=== PATIENT | male | born 1965 | race Caucasian/White ===

== ENCOUNTER 2016-10-31 01:00 | Day surgery (SDC) | payer MEDICAID ==
[~2016-10-31] VITALS: Ht 182.9 cm; Wt 99.0 kg
--- NOTE | ~2016-10-31 | ER ---
PATIENT'S NAME: ERIN FUENTES [facility] AGE: 51 Y [address] ROOM: [place] [address] [place] [facility] [place]: 10/31/2016 ER/Outpatient Report DISCHARGE DATE: FAMILY PHYSICIAN: Carlos Bell MD ATTENDING PHYSICIAN: YARON BARRIENTOS TIME SEEN: The patient was seen at 0120 hours. CHIEF COMPLAINT: This is a 51-year-old male. He was previously healthy. He is in with a complaint of a food bolus lodged in his lower esophagus. HISTORY OF PRESENT ILLNESS: He reports that he was eating steak last night around 5, and a bolus of food got lodged in his esophagus. He states that since then, he has been intermittently having to throw up his saliva secretions, and he has had continued pain. He has been unable to eat or drink anything. He states he has had similar problems in the past, although they have always resolved spontaneously. He has never been evaluated for it. PAST MEDICAL HISTORY: He has no chronic medical problems. CURRENT MEDICATIONS: None. REVIEW OF SYSTEMS: Otherwise, negative. SOCIAL HISTORY: He is a nonsmoker. PHYSICAL EXAMINATION: GENERAL: Alert, cooperative male in no acute distress. VITAL SIGNS: Stable. SKIN: Warm and dry. Color is normal. HEAD, EARS, EYES, NOSE, AND THROAT: Normal. NECK: Supple. HEART: Normal. LUNGS: Normal. ABDOMEN: Soft and nontender. EXTREMITIES: Normal. NEUROLOGIC: Normal. PATIENT'S NAME: ERIN FUENTES [facility] AGE: 51 Y [address] ROOM: [place] [address] [place]: [facility] [place]: 10/31/2016 ER/Outpatient Report DISCHARGE DATE: FAMILY PHYSICIAN: Carlos Bell MD ATTENDING PHYSICIAN: YARON BARRIENTOS EMERGENCY DEPARTMENT COURSE: IV was established. He was given glucagon 1 mg IV, and he attempted to drink water without success. Dr. Barrientos, the workers compensation claims specialist, was called and agreed to take the patient to endoscopy in the morning. ASSESSMENT: Lower esophageal impaction. PLAN: Endoscopic management by Dr. Barrientos. RAMOS PARTIDA MD JDB/modl /[id number] d: 10/31/16 1154 t: 12/05/16 0453, OUTPATIENT REPORT
--- NOTE | ~2016-10-31 | ER ---
PATIENT'S NAME: ERIN FUENTES [facility] AGE: 51 Y [address] ROOM: [place] [address] LOCATION: [facility] [place] DATE: 10/31/2016 ER/Outpatient Report DISCHARGE DATE: FAMILY PHYSICIAN: Carlos Bell MD ATTENDING PHYSICIAN: YARON BARRIENTOS TIME SEEN: The patient was seen at 0120 hours. CHIEF COMPLAINT: This is a 51-year-old male. He was previously healthy. He is in with a complaint of a food bolus lodged in his lower esophagus. HISTORY OF PRESENT ILLNESS: He reports that he was eating steak last night around 5, and a bolus of food got lodged in his esophagus. He states that since then, he has been intermittently having to throw up his saliva secretions, and he has had continued pain. He has been unable to eat or drink anything. He states he has had similar problems in the past, although they have always resolved spontaneously. He has never been evaluated for it. PAST MEDICAL HISTORY: He has no chronic medical problems. CURRENT MEDICATIONS: None. REVIEW OF SYSTEMS: Otherwise, negative. SOCIAL HISTORY: He is a nonsmoker. PHYSICAL EXAMINATION: GENERAL: Alert, cooperative male in no acute distress. VITAL SIGNS: Stable. SKIN: Warm and dry. Color is normal. HEAD, EARS, EYES, NOSE, AND THROAT: Normal. NECK: Supple. HEART: Normal. LUNGS: Normal. ABDOMEN: Soft and nontender. EXTREMITIES: Normal. NEUROLOGIC: Normal. PATIENT'S NAME: ERIN FUENTES [facility] AGE: 51 Y [address] ROOM: [place] [address] LOCATION: [facility] [place]MIT DATE: 10/31/2016 ER/Outpatient Report DISCHARGE DATE: FAMILY PHYSICIAN: Carlos Bell MD ATTENDING PHYSICIAN: YARON BARRIENTOS EMERGENCY DEPARTMENT COURSE: IV was established. He was given glucagon 1 mg IV, and he attempted to drink water without success. Dr. Barrientos, the manager community outreach, was called and agreed to take the patient to endoscopy in the morning. ASSESSMENT: Lower esophageal impaction. PLAN: Endoscopic management by Dr. Barrientos. RAMOS PARTIDA MD JDB/modl /[id number] d: t: 10/31/16 1219, OUTPATIENT REPORT
[2016-10-31] MEDS ORDERED: PROTONIX40 MG PO (07:04)
[2017-01-21] MEDS ORDERED: KLONOPIN1 MG PO (12:57)
== END 2016-10-31 07:40 | disposition disaster alternative care site (69) ==
LOC: GMED 01:00 → GSDC 05:03
PROC: 0DC58ZZ Extirpation of Matter from Esophagus, Via Natural or Artificial Opening Endoscopic (ICD-10-PCS; principal; 2016-10-31)
PROC: 0DB58ZX Excision of Esophagus, Via Natural or Artificial Opening Endoscopic, Diagnostic (ICD-10-PCS; 2016-10-31)
DX: K20.0 Eosinophilic esophagitis (principal); T18.128A Food in esophagus causing other injury, initial encounter
CPT/HCPCS: J1610; J7030

== ENCOUNTER → 2017-01-31 | Day surgery (SDC) | payer MEDICAID ==
[~2017-01-31] VITALS: Ht 182.9 cm; Wt 98.6 kg
[~2017-01-31] MED LIST: KLONOPIN1 MG PO; PROTONIX40 MG PO
== END ==
LOC: GPOC 01-21 09:00 → GEND 08:18
PROC: 0DB58ZX Excision of Esophagus, Via Natural or Artificial Opening Endoscopic, Diagnostic (ICD-10-PCS; principal; 2017-01-31)
PROC: 0DB88ZX Excision of Small Intestine, Via Natural or Artificial Opening Endoscopic, Diagnostic (ICD-10-PCS; 2017-01-31)
PROC: 0DB68ZX Excision of Stomach, Via Natural or Artificial Opening Endoscopic, Diagnostic (ICD-10-PCS; 2017-01-31)
DX: R13.10 Dysphagia, unspecified (principal); Z98.890 Other specified postprocedural states
CPT/HCPCS: J2001; J7030